=== PATIENT | male | born 1990 | race Caucasian/White ===

== ENCOUNTER 2020-11-27 07:38 | Outpatient (CLI) | payer OTHER, SELFPAY | END 2020-11-27 07:39 | disposition home or self-care (01) | PROVIDERS: PCP Family Medicine; Visit Provider Family Medicine | DX: Z01.10 Encounter for examination of ears and hearing without abnormal findings (principal) | CPT/HCPCS: 92552; 92556; 92567 ==

== ENCOUNTER 2021-11-28 08:46 | Outpatient (CLI) | payer OTHER, SELFPAY | END 2021-11-28 08:47 | disposition home or self-care (01) | LOC: ANHAUDIO 08:47 | PROVIDERS: PCP Family Medicine; Visit Provider Family Medicine | DX: Z01.10 Encounter for examination of ears and hearing without abnormal findings (principal) | CPT/HCPCS: 92552; 92556; 92567 ==

== ENCOUNTER 2022-12-12 08:50 | Outpatient (CLI) | payer OTHER, SELFPAY | END 2022-12-12 08:51 | disposition home or self-care (01) | LOC: ANHAUDIO 08:50 | PROVIDERS: PCP Family Medicine; Visit Provider Family Medicine | DX: Z01.10 Encounter for examination of ears and hearing without abnormal findings (principal) | CPT/HCPCS: 92552; 92556; 92567 ==

== ENCOUNTER 2023-12-31 07:53 | Outpatient (CLI) | payer OTHER, SELFPAY | END 2023-12-31 07:54 | disposition home or self-care (01) | LOC: ANHAUDIO 07:55 | PROVIDERS: PCP Family Medicine; Visit Provider Family Medicine | DX: Z01.10 Encounter for examination of ears and hearing without abnormal findings (principal) | CPT/HCPCS: 92557; 92567 ==

== ENCOUNTER 2025-01-05 08:02 | Outpatient (CLI) | payer OTHER, SELFPAY ==
--- OUTSIDE RECORDS SUMMARY | 2025-01-05 08:12 | XMS_ITS ---
Author Organization Unknown Address [address] [place] [phone] Phone Care Team Providers Care Filler In Name Role Phone FLACA PEÑA William Attending Unavailable Immunization Immunization Date Status Additional Notes Code Code System Influenza, split virus, quadrivalent, preservative 06/11/2022 Completed 158 C VX COVID-19, mRNA, LNP-S, PF, 1 00 mcg/0.5mL dose or 50 mcg/0.25mL dose 11/21/2021 Completed 207 CVX COVID-19 vaccine, vector-nr, rS-Ad26, PF, 0.5 mL 01/10/2021 Completed 212 CVX COVID-19, mRNA, LNP-S, bivalent, PF, 30 mcg/0.3 mL dose 12/18/2022 Completed 300 CVX Results COMPREHENSIVE METABOLIC PANE L - Collect Date/Time: 02/16/2024 06:25 [facility] ID: [id number] [place] [address], [phone] LOINC: 23245-1 Test Value Unit Reference Range Code Code System Flag FASTING YES BUN 16 mg/dL L=7 H=20 3094-0 LOINC CREATININE 0.80 mg/dL L=0.66 H=1.25 2160-0 LOINC GLUCOSE 91 mg/dL L=74 H=106 2345-7 LOINC SODIUM 141 mmol/L L=132 H=144 2951-2 LOINC POTASSIUM 4.0 mmol/L L=3.5 H=5.1 2823-3 LOINC CHLORIDE 103 mmol/L L=98 H=107 2075-0 LOINC CO2 29.0 mmol/L L=22.0 H=30.0 8-9 LOINC ANION GAP 13 L=10 H=20 44046-3 LOINC OSMOLALITY 293 mOs/kG L=280 H=296 50548-1 LOINC BUN/CREAT 20.0 3097-3 LOINC CALCIUM 9.6 mg/dL L=8.3 H=10.5 20557-1 LOINC AST 31 U/L L=15 H=46 1920-8 LOINC ALT 24 U/L L=9 H=72 1742-6 LOINC ALKALINE PHOS 80 U/L L=38 H=126 6768-6 LOINC TOTAL BILI 0.5 mg/dL L=0.2 H=1.3 1975-2 LOINC ALBUMIN 4.5 G/dL L=3.5 H=5.0 1751-7 LOINC TOTAL PROTEIN 7.4 g/L L=6.3 H=8.2 2885-2 LOINC A/G RATIO 1.6 59145-1 LOINC AGE 33 77571-5 LOINC eGFR NON-AFR 120 ml/min eGFR AFR AMER 145 ml/min HEPATITIS C AB (HCV Ab) - Co llect Date/Time: 02/16/2024 06:25 [facility] ID: [id number] [address] [place] [address], [phone] LOINC: 75748-2 Test Value Unit Reference Range Code Code System Flag Hep C Virus Ab Non Reactive Non Reactive 50118-7 LOINC SEND TO IF? NO HIV 4th GEN Ab 1&2 p24 Ag in -house - Collect Date/Time: 02/16/2024 06:25 [facility] ID: [id number] [address] [place] [address], [phone] LOINC: 63024-3 Test Value Unit Reference Range Code Code System Flag HIV-1 Ab NEGATIVE NORMAL: NON REACTIVE/NE HIV-2 Ab NEGATIVE HIV-p24 Ag NEGATIVE SEND TO IF? NO REFLEX? NO 5778-6 LOINC CBC W/ DIFF - Collect Date/T chiqui: 02/16/2024 06:25 [facility] ID: [id number] [address] [place], [place], [phone] LOINC: 53291-7 Test Value Unit Reference Range Code Code System Flag WBC 5.6 10^3uL L=4.8 H=10.8 RBC 4.75 10^6uL L=4.60 H=6.20 HEMOGLOBIN 14.0 g/dL L=14.0 H=18.0 718-7 LOINC HEMATOCRIT 43.5 VOL% L=42.0 H=52.0 4544-3 LOINC MCV 91.6 fL L=80.0 H=94.0 MCH 29.5 pg L=27.0 H=32.0 MCHC 32.2 g/dL L=32.0 H=36.0 PLATELETS 199 10^3uL L=100 H=400 03970-2 LOINC RDW 12.0 % L=11.7 H=15.5 %GRAN 48.3 % L=40.0 H=70.0 01347-8 LOINC %LYMPH 41.7 % L=20.0 H=45.0 736-9 LOINC %MONO 8.2 % L=2.0 H=10.0 56758-7 LOINC %EOS 1.1 % L=0.0 H=6.0 713-8 LOINC %BASO 0.5 % L=0.0 H=3.0 706-2 LOINC #NEUT 2.7 10^3uL L=1.9 H=7.6 54791-4 LOINC #LYMPH 2.3 10^3uL L=0.9 H=4.9 91944-5 LOINC #MONO 0.5 10^3uL L=0.1 H=0.9 78344-7 LOINC #EOS 0.1 10^3uL L=0.0 H=0.6 712-0 LOINC #BASO 0.03 10^3uL L=0.00 H=0.10 08041-7 LOINC #IM GRANS 0.0 10^3uL L=0.0 H=7.0 46350-0 LOINC %IM GRANS 0.2 % L=0.0 H=5.0 43067-6 LOINC %NRB 0.0 L=0.0 H=0.2 74150-6 LOINC #NRB 0.000 L=0.000 H=0.012 71585-3 LOINC MANUAL DIFF NOT INDICATED RBC MORPH NOT INDICATED Social History Type Status Start Date End Date Code Code Syst em Smoking History Unknown if ever smoked [address] Smoking History Never smoker (Never Smoked) 087218272 SNOMED CT Sex Male Assessment You had the following problems:ENCOUNTER FOR SCREENING FOR INFECTIONS WITH A PREDOMINANTLY SEXUAL MODE OF TRANSENCOUNTER FOR SCREENING FOR HUMAN IMMUNODEFICIENCY VIRUS [HIV] Hospital Discharge Instructions Should you have any questions prior to discharge, please contact a member of your healthcare team. If you have left the hospital and have any questions, please contact your primary care physician. 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
== END 2025-01-05 08:03 | disposition home or self-care (01) ==
LOC: ANHAUDIO 08:03
PROVIDERS: PCP Family Medicine; Visit Provider Family Medicine
DX: Z01.10 Encounter for examination of ears and hearing without abnormal findings (principal); H90.3 Sensorineural hearing loss, bilateral
CPT/HCPCS: 92557; 92567